=== PATIENT | male | born 1945 | race Caucasian/White ===

== ENCOUNTER 2020-01-19 12:08 | Emergency (ER) | payer OTHER ==
[~2020-01-19] VITALS: Ht 165.1 cm; Wt 70.3 kg
[2020-01-19] MEDS ORDERED: ATOR80 PO (13:28)
[2020-01-19] MEDS ORDERED: OYSTER SHELL 51 EACH PO (13:29)
[2020-01-19] MEDS ORDERED: FLUT.05NI (13:30)
[2020-01-19] MEDS ORDERED: FOLI1 PO (13:35)
[2020-01-19] MEDS ORDERED: FURO40 PO (13:35)
[2020-01-19] MEDS ORDERED: LOSA25 PO (13:35)
[2020-01-19] MEDS ORDERED: EUTHYROX125 MCG PO (13:35)
[2020-01-19] MEDS ORDERED: OMEP20ER PO (13:36)
[2020-01-19] MEDS ORDERED: SILD50TA (13:36)
[2020-01-19] MEDS ORDERED: TIOT18 INH (13:36)
[2020-01-19 14:15] LABS: Hematocrit 24.5 % (37.0-53.0); Hemoglobin 8.1 g/dL (13.5-17.5); Mean Corpuscular HGB 39.7 pg (26.0-34.0); Mean Corpuscular HGB Conc 33.1 g/dL (31.5-36.5); Mean Corpuscular Volume 120 fL (80-100); Mean Platelet Volume 9.7 fL (9.1-12.4); Platelet Count 166 K/mm3 (150-400); RDW Coefficient Variation 17.1 % (11.7-14.2); RDW Standard Deviation 75.6 fL (35.1-46.3); Red Blood Cell Count 2.04 M/mm3 (4.30-5.90); White Blood Cell Count 4.95 K/mm3 (4.00-11.30)
[2020-01-19 14:34] LABS: Alanine Aminotransfer (ALT/SGP 67 U/L (12-78); Albumin, Blood 1.8 g/dL (3.4-5.0); Albumin/Globulin Ratio 0.3 (0.8-1.8); Alk Phos 176 U/L (50-136); Anion Gap 6 mmol/L (6-16); Aspartate Aminotrans (AST/SGOT 71 U/L (12-37); Bilirubin, Total 0.5 mg/dL (0.1-1.0); Blood Urea Nitrogen 22 mg/dL (8-24); Bun/Creatinine Ratio 18.2 (12.0-20.0); CO2, Blood 26 mmol/L (21-32); Calcium, Blood 8.2 mg/dL (8.5-10.1); Chloride, Blood 105 mmol/L (98-108); Creatinine, Blood 1.21 mg/dL (0.60-1.20); Globulin, Blood 5.8 g/dL (2.2-4.0); Glomerular Filtration Rate >60 (60-); Glucose, Blood 94 mg/dL (70-99); Potassium, Blood 4.5 mmol/L (3.5-5.5); Sodium, Blood 137 mmol/L (136-145); Total Protein, Blood 7.6 g/dL (6.4-8.2); Troponin I <0.015 ng/mL (0.000-0.040)
[2020-01-19 14:48] LABS: BAND PERCENT MAN 3 % (0-8); BASOPHILS ABSOLUTE MAN 0.04 K/mm3 (0.00-0.23); BASOPHILS PERCENT MAN 1 % (0-2); EOSINOPHILS PERCENT MAN 0 % (0-6); LYMPHOCYTES % ATYPICAL MANUAL 3 % (0-0); LYMPHOCYTES ABSOLUTE MAN 3.31 K/mm3 (0.84-5.20); LYMPHOCYTES PERCENT MAN 64 % (21-46); MONOCYTES ABSOLUTE MAN 0.04 K/mm3 (0.16-1.47); MONOCYTES PERCENT MAN 1 % (4-13); NEUTROPHILS ABSOLUTE MAN 1.53 K/mm3 (1.96-9.15); SEG NEUTROPHILS PERCENT MAN 28 % (41-73); TOTAL CELLS COUNTED 100
[2020-01-20] MEDS ORDERED: HYDSUL200 PO (14:43)
[2020-01-20] MEDS ORDERED: PRED5 PO (14:43)
[2020-01-20] MEDS ORDERED: POTCIT10 PO (14:44)
[2020-01-20] MEDS ORDERED: FERSU300 PO (14:44)
[2020-01-20] MEDS ORDERED: GUAI600T33 PO (14:45)
[2020-01-20] MEDS ORDERED: ALBU90OI INH (14:46)
[2020-01-20] MEDS ORDERED: BUDE.25 INH (14:46)
[2020-01-20] MEDS ORDERED: FLUT.05NI (14:47)
[2020-01-20] MEDS ORDERED: LEVFLO500 PO (14:49)
[2020-01-20] MEDS ORDERED: CENTRUM SILVER1 EAC2 PO (14:50)
[2020-01-20] MEDS ORDERED: VITAMIN D310 MC4 PO (14:50)
[2020-01-20] MEDS ORDERED: ZINC15 PO (14:51)
[2020-01-20] MEDS ORDERED: ASCO500 PO (14:51)
[2020-01-20] MEDS ORDERED: HUMIRA40 MG/0.2 INJ (14:52)
[2020-01-20] MEDS ORDERED: Isopto Tears15 ML UD (14:54)
[2020-01-20] MEDS ORDERED: TUMS500 MG PO (14:56)
== END 2020-01-19 15:53 | disposition home or self-care (01) ==
LOC: ER 12:08
PROVIDERS: Physician Assistant
DX: D46.9 Myelodysplastic syndrome, unspecified (principal); J44.9 Chronic obstructive pulmonary disease, unspecified; Z88.5 Allergy status to narcotic agent; Z20.828 Contact with and (suspected) exposure to other viral communicable diseases; Z79.899 Other long term (current) drug therapy
CPT/HCPCS: 71045; 80053; 83880; 84484; 85025; 93005; 93010; 99285-25; U0004

== ENCOUNTER 2020-01-20 10:14 | Day surgery (SDC) | payer OTHER ==
[~2020-01-20 10:14] MED LIST: ATOR80 PO; EUTHYROX125 MCG PO; FLUT.05NI; FOLI1 PO; FURO40 PO; LOSA25 PO; OMEP20ER PO; OYSTER SHELL 51 EACH PO; SILD50TA; TIOT18 INH
[2020-01-20] MEDS ORDERED: PRED5 PO (14:43)
[2020-01-20] MEDS ORDERED: HYDSUL200 PO (14:43)
[2020-01-20] MEDS ORDERED: FERSU300 PO (14:44)
[2020-01-20] MEDS ORDERED: POTCIT10 PO (14:44)
[2020-01-20] MEDS ORDERED: GUAI600T33 PO (14:45)
[2020-01-20] MEDS ORDERED: BUDE.25 INH (14:46)
[2020-01-20] MEDS ORDERED: ALBU90OI INH (14:46)
[2020-01-20] MEDS ORDERED: FLUT.05NI (14:47)
[2020-01-20] MEDS ORDERED: LEVFLO500 PO (14:49)
[2020-01-20] MEDS ORDERED: VITAMIN D310 MC4 PO (14:50)
[2020-01-20] MEDS ORDERED: CENTRUM SILVER1 EAC2 PO (14:50)
[2020-01-20] MEDS ORDERED: ZINC15 PO (14:51)
[2020-01-20] MEDS ORDERED: ASCO500 PO (14:51)
[2020-01-20] MEDS ORDERED: HUMIRA40 MG/0.2 INJ (14:52)
[2020-01-20] MEDS ORDERED: Isopto Tears15 ML UD (14:54)
[2020-01-20] MEDS ORDERED: TUMS500 MG PO (14:56)
== END 2020-01-20 17:31 | disposition home or self-care (01) ==
LOC: ATC 10:14
DX: D64.9 Anemia, unspecified (principal); Z88.5 Allergy status to narcotic agent
CPT/HCPCS: 36415; 36430; 86850; 86900; 86901; 86923; J7050; P9016

== ENCOUNTER 2020-04-11 06:55 | Day surgery (SDC) | payer OTHER ==
[~2020-04-11] VITALS: Ht 165.1 cm; Wt 72.6 kg
[~2020-04-11 06:55] MED LIST changes: +ALBU90OI INH; +ASCO500 PO; +BUDE.25 INH; +CENTRUM SILVER1 EAC2 PO; +FERSU300 PO; +GUAI600T33 PO; +HUMIRA40 MG/0.2 INJ; +HYDSUL200 PO; +Isopto Tears15 ML UD; +LEVFLO500 PO; +POTCIT10 PO; +PRED5 PO; +TUMS500 MG PO; +VITAMIN D310 MC4 PO; +ZINC15 PO
--- NOTE | 2020-04-11 08:51 | NUR ---
Ambulatory in Day Surgery Surgical site prepped with 2% Chlorhexidine cloth wipe. History, Chart, Medications and Allergies reviewed before start of procedure. Patient confirms NPO status and agrees with scheduled surgery. Pre-Op teaching done. Pt verbalizes understanding. Patient reports completing Chlorhexadine shower X2 prior to admission to hospital.Patient States Post-Procedure ride home has been arranged.
--- NOTE | 2020-04-11 09:40 | NUR ---
04/11/[address] ACCESSED THE PORT AND PUT THE DRESSING ON IT PRIOR TO LEAVING OR 2.
--- NOTE | 2020-04-11 10:39 | NUR ---
Patient up to Ambulate independently. Gait steady. Discharge instructions reviewed with patient. Patient verbalizes understanding. Copy given to patient to take home. Dressing to procedure site clean, dry, intact with no visible drainage, swelling, erythema or bruising noted. Mediport accessed. Patient States Post-Procedure ride home has been arranged. . Discharged via wheelchair to private car for ride home.
[2020-06-24] MEDS ORDERED: ATOR80 PO (15:00)
[2020-06-24] MEDS ORDERED: ALBU90OI INH (15:00)
[2020-06-24] MEDS ORDERED: HUMIRA(CF)40 MG/0.1 SC (15:00)
[2020-06-24] MEDS ORDERED: AKWA Tears15 ML (15:00)
[2020-06-24] MEDS ORDERED: CALCIUM CIT 311 EACH PO (15:01)
[2020-06-24] MEDS ORDERED: VITAMIN D325 MC3 PO (15:01)
[2020-06-24] MEDS ORDERED: FERROUS SULFAT325 M3 PO (15:01)
[2020-06-24] MEDS ORDERED: FLONASE SENSIM5.9 M1 (15:02)
[2020-06-24] MEDS ORDERED: GUAI600T33 PO (15:03)
[2020-06-24] MEDS ORDERED: FOLI1 PO (15:03)
[2020-06-24] MEDS ORDERED: FLONASE ALLERG9.9 M2 (15:03)
[2020-06-24] MEDS ORDERED: FURO20 PO (15:03)
[2020-06-24] MEDS ORDERED: LIDO700A20 TOP (15:04)
[2020-06-24] MEDS ORDERED: LEVO-T125 MC1 PO (15:04)
[2020-06-24] MEDS ORDERED: HYDSUL200 PO (15:04)
[2020-06-24] MEDS ORDERED: MAGNESIUM CITR100 M1 PO (15:04)
[2020-06-24] MEDS ORDERED: OMEP20ER PO (15:05)
[2020-06-24] MEDS ORDERED: MULTIPLE VITAM1 EACH PO (15:05)
[2020-06-24] MEDS ORDERED: OXYC5 PO (15:05)
[2020-06-24] MEDS ORDERED: POTA10T PO (15:05)
[2020-06-24] MEDS ORDERED: PRED5 PO (15:05)
[2020-06-24] MEDS ORDERED: STIOLTO RESPIMAT4 G1 INH (15:06)
[2020-06-24] MEDS ORDERED: VITAMIN C125 MG PO (15:06)
[2020-06-24] MEDS ORDERED: GALZIN50 MG PO (15:06)
== END 2020-04-11 10:30 | disposition home or self-care (01) ==
LOC: ORSCMMR 06:55 → ORD 08:30 → ORSCMMR 10:30
PROVIDERS: Surgery
PROC: 0JH60WZ Insertion of Totally Implantable Vascular Access Device into Chest Subcutaneous Tissue and Fascia, Open Approach (ICD-10-PCS; principal; 2020-04-11 08:30)
DX: D46.9 Myelodysplastic syndrome, unspecified (principal); I10 Essential (primary) hypertension; J44.9 Chronic obstructive pulmonary disease, unspecified; Z79.899 Other long term (current) drug therapy; Z87.891 Personal history of nicotine dependence
CPT/HCPCS: 77001; C1788; J0690; J1100; J1642; J2250; J2370; J2405; J2704; J3010; J7120

== ENCOUNTER → 2020-05-28 | Outpatient (CLI) | payer OTHER ==
[~2020-05-28] MED LIST changes: +AKWA Tears15 ML; +CALCIUM CIT 311 EACH PO; +FERROUS SULFAT325 M3 PO; +FLONASE ALLERG9.9 M2; +FLONASE SENSIM5.9 M1; +FURO20 PO; +GALZIN50 MG PO; +HUMIRA(CF)40 MG/0.1 SC; +LEVO-T125 MC1 PO; +LIDO700A20 TOP; +MAGNESIUM CITR100 M1 PO; +MULTIPLE VITAM1 EACH PO; +OXYC5 PO; +POTA10T PO; +STIOLTO RESPIMAT4 G1 INH; +VITAMIN C125 MG PO; +VITAMIN D325 MC3 PO
[2020-05-29 08:49] LABS: Stool Occult Bld Immuno 1 Positive (NEGATIVE)
== END | disposition home or self-care (01) ==
LOC: LAB SHORT 11:30 → LAB 11:30
PROVIDERS: Internal Medicine Hematology & Oncology
DX: D46.9 Myelodysplastic syndrome, unspecified (principal)
CPT/HCPCS: G0328

== ENCOUNTER 2020-10-17 05:36 | Emergency (ER) | payer OTHER ==
[~2020-10-17] VITALS: Ht 165.1 cm; Wt 65.3 kg
[2020-10-17] MEDS ORDERED: Roxicodone5 MG PO (09:17)
== END 2020-10-17 09:47 | disposition home or self-care (01) ==
LOC: ER 05:36
DX: M48.50XA Collapsed vertebra, not elsewhere classified, site unspecified, initial encounter for fracture (principal); G89.29 Other chronic pain
CPT/HCPCS: 71045; 96374; 99283-25; J1170